=== PATIENT | male | born 1995 | race Caucasian/White ===

== ENCOUNTER 2017-04-01 11:43 | Emergency (ER) | payer BC ==
[~2017-04-01] VITALS: Ht 195.6 cm; Wt 65.4 kg
[~2017-04-01 11:43] MED LIST: VTMD PO; ZLF/50 PO
[2017-04-01 11:47] VITALS: TEMP 36.7; Ht 195.6 cm; Wt 65.4 kg
[2017-04-01] MEDS ORDERED: ONDANSETRON INJ 2 MG/ML 2 ML VIAL IV STA (12:46)
[2017-04-01] MEDS ORDERED: SODIUM CHLORIDE 0.9% 1000ML 300 ML IV STA (12:46)
[2017-04-01] MEDS ORDERED: ONDANSETRON INJ 2 MG/ML 2 ML VIAL ONE (12:52)
[2017-04-01 13:01] LABS: HEMATOCRIT 46.8 % (42-52); MEAN CELL VOLUME 96.5 fL (80-100); MEAN CORPUSCULAR HEMOGLOBIN 34.4 pg (25-34); MEAN CORPUSCULAR HGB CONC 35.7 g/dl (32-36); MEAN PLATELET VOLUME 10.7 fL (7.4-10.4); PLATELET COUNT 234 K/uL (130-400); RED BLOOD COUNT 4.85 M/uL (4.7-6.1); WHITE BLOOD COUNT 9.15 K/uL (4.8-10.8)
[2017-04-01 13:05] LABS: MANUAL MICROSCOPIC REQUIRED? YES; URINE APPEARANCE CLOUDY (CLEAR); URINE BILIRUBIN NEG (NEG); URINE COLOR AMBER; URINE NITRITE POS (NEG); URINE PH 6.5 (4.5-7.5); URINE SPECIFIC GRAVITY 1.025 (1.000-1.030); UROBILINOGEN NEG (NEG)
[2017-04-01 13:06] LABS: REVIEW REQ? NO
[2017-04-01 13:09] LABS: URINE BACTERIA 2+ (NEG); URINE MUCUS PRESENT (NONE PRSENT); URINE RBC >30 /hpf (0-4); URINE WBC >30 /hpf (0-5); ZZUR CULT IF INDIC CLEAN CATCH YES
--- NOTE | 2017-04-01 13:15 | EMERGENCY ROOM VISIT NOTE ---
History First contact with patient: 13:01 Chief Complaint: URINARY SYMPTOMS Stated Complaint: KIDNEY PAIN, DARK URINE, TESTICULAR PAIN, N,V Nursing Triage Summary: low urine output, cola colored, nausea/vomiting, and testicular pain History of Present Illness The patient is a 21 year old male who presents to the Emergency Room with complaints of right flank pain, nausea and vomiting that started yesterday morning. The patient is also having a difficult time urinating. He feels that he has to urinate, but it only dribbles out. The pain is better today than it was yesterday. He has tried acetaminophen with good pain relief. He denies any fever or chills. No changes in bowel movements. He denies any history of kidney stones. Review of Systems 10 system review performed and negative unless noted in HPI or below Past Medical/Surgical History Otherwise healthy Family History Kidney stones Social History Smoking Status: Current Every Day Smoker Alcohol Use: none Drug Use: none Current/Historical Medications Scheduled Ondasetron Odt (Zofran Odt), 4 MG SL Q6H Sertraline HCl (Sertraline HCl), 50 MG PO QPM Sulfa/Trimethoprim (Bactrim Ds 800MG/160MG), 1 TAB PO BID Tamsulosin Hcl (Flomax), 0.4 MG PO DAILY Scheduled PRN Oxycodone/Acetaminophen 5MG/325MG (Percocet 5MG/325MG), 1 TAB PO Q4H PRN for Pain Physical Exam Vital Signs Date Time Temp Pulse Resp B/P (MAP) Pulse Ox O2 Delivery O2 Flow Rate FiO2 04/01/17 15:05 55 16 124/64 99 Room Air 04/01/17 12:57 51 18 120/70 99 Room Air 04/01/17 12:49 51 04/01/17 11:47 36.7 69 18 98/60 98 Room Air Physical Exam VITALS: Vitals are noted on the nurse's note and reviewed by myself. Vital signs stable. GENERAL: 21-year-old male, in no acute distress, nondiaphoretic, well-developed well-nourished. SKIN: The skin was without rashes, erythema, edema, or bruising. HEAD: Normocephalic atraumatic. MOUTH: Mucous membranes dry. NECK: Supple without nuchal rigidity. No lymphadenopathy. Cervical spine is nontender. No JVD. HEART: Regular rate and rhythm without murmurs gallops or rubs. LUNGS: Clear to auscultation bilaterally without wheezes, rales or rhonchi. No accessory muscle use. ABDOMEN: Positive bowel sounds x 4.Soft, nontender, without organomegaly. No guarding or rebound tenderness. Slight right-sided CVA tenderness noted. MUSCULOSKELETAL: No muscle atrophy, erythema, or edema noted. Strength 5/5 throughout. NEURO: Patient was alert and oriented to person place and time. Normal sensation to touch. No focal neurological deficits. Medical Decision & Procedures ER Provider Diagnostic Interpretation: CT abdomen and pelvis Patient Name: AMY GEORGE Unit Number: [id number] Dictated: 04/01/171346 Transcribed: 04/01/171346 JRB Printed Date/Time: [~ rep prt dt]/[~ rep prt tm] [~ rep ct labl] - [~ rep ct ivnm] [facility] Radiology Department [place] [id number] Dictated: 04/01/171346 Transcribed: 04/01/171346 JRB Printed Date/Time: [~ rep prt dt]/[~ rep prt tm] [~ rep ct labl] - [~ rep ct ivnm] IMPRESSION: 1. Mild right-sided hydroureteronephrosis secondary to an obstructing 5 x 3 x 3 mm calculus of the right ureterovesicular junction. 2. Remote appearing left-sided pars defect at L5 with ill-defined lucency noted involving the right pars interarticularis at this level suspicious for possible acute pars defect. Correlate with clinical exam and patient history. 3. Normal appendix. The above report was generated using voice recognition software. It may contain grammatical, syntax or spelling errors. Electronically signed by: Holland Cardozo M.D. 04/01/2017 1:55 PM Dictated Date/Time: 04/01/2017 1:47 PM The status of this report is Signed. Draft = Not yet reviewed or approved by Radiologist. Signed = Reviewed and approved by Radiologist. <AttendingPhy></AttendingPhy> <FamilyPhy>Anuel Aguilar D.OGeneva</FamilyPhy> < PrimaryPhy>Anuel Aguilar D.O.</PrimaryPhy> <UnitNumber>[id number]</UnitNumber > <VisitNumber>[id number]</VisitNumber> <PatientName>AMY GEORGE</ PatientName> <DateOfBirth>1995</DateOfBirth> <Location>[facility]</Location> < ServiceDate>04/01/17</ServiceDate> <MNE>ESINDI</MNE> <OrderingPhy>Sylvia Diaz PA-C</OrderingPhy> <OrderingPhyMNE>f rep ord dr champion</OrderingPhyMNE> < DictatingPhyMNE>f rep dict dr champion</DictatingPhyMNE> <CCListMNE>f rep ct mne</ CCListMNE> <AdmittingPhyMNE>f pt admit dr champion</AdmittingPhyMNE> <AttendingPhyMNE >f pt attend dr champion</AttendingPhyMNE> <ConsultingPhyMNE>f pt consult dr champion</ConsultingPhyMNE> <FamilyPhyMNE>f pt fam dr champion</FamilyPhyMNE> <OtherPhyMNE>f pt other dr champion</OtherPhyMNE> < PrimaryPhyMNE>f pt prim care dr champion</PrimaryPhyMNE> <ReferringPhyMNE>f pt referring dr champion</ReferringPhyMNE> Laboratory Results 04/01/17 12:20 04/01/17 12:20 Test 04/01/17 12:20 04/01/17 12:44 Red Blood Count 4.85 M/uL (4.7-6.1) Mean Corpuscular Volume 96.5 fL (80-100) Mean Corpuscular Hemoglobin 34.4 pg (25-34) Mean Corpuscular Hemoglobin Concent 35.7 g/dl (32-36) RDW Standard Deviation 41.9 fL (36.4-46.3) RDW Coefficient of Variation 11.8 % (11.5-14.5) Mean Platelet Volume 10.7 fL (7.4-10.4) Anion Gap 2.0 mmol/L (3-11) Est Creatinine Clear Calc Drug Dose 99.1 ml/min Estimated GFR () 111.4 Estimated GFR (Non- 96.1 BUN/Creatinine Ratio 12.8 (10-20) Calcium Level 9.5 mg/dl (8.5-10.1) Total Bilirubin 0.8 mg/dl (0.2-1) Direct Bilirubin 0.2 mg/dl (0-0.2) Aspartate Amino Transf (AST/SGOT) 18 U/L (15-37) Alanine Aminotransferase (ALT/SGPT) 24 U/L (12-78) Alkaline Phosphatase 121 U/L (45-117) Total Creatine Kinase 134 U/L (39-308) Creatine Kinase MB 0.9 ng/ml (0.5-3.6) Creatine Kinase MB Ratio 0.7 (0-3.0) Total Protein 8.0 gm/dl (6.4-8.2) Albumin 4.4 gm/dl (3.4-5.0) Lipase 101 U/L (73-393) Urine Color PATRICE Urine Appearance CLOUDY (CLEAR) Urine pH 6.5 (4.5-7.5) Urine Specific [place] 1.025 (1.000-1.030) Urine Protein 3+ (NEG) Urine Glucose (UA) NEG (NEG) Urine Ketones 1+ (NEG) Urine Occult Blood 3+ (NEG) Urine Nitrite POS (NEG) Urine Bilirubin NEG (NEG) Urine Urobilinogen NEG (NEG) Urine Leukocyte Esterase NEG (NEG) Urine RBC >30 /hpf (0-4) Urine WBC >30 /hpf (0-5) Urine Epithelial Cells 0-5 /lpf (0-5) Urine Bacteria 2+ (NEG) Urine Mucus PRESENT (NONE PRSENT) Medications Administered Medications (Trade) Dose Ordered Sig/Ilan Route Start Time Stop Time Status Last Admin Dose Admin Sodium Chloride 300 ml @ 999 mls/hr Q19M STAT IV 04/01/17 12:46 04/01/17 13:04 DC 04/01/17 12:54 999 MLS/HR Ondansetron HCl (Zofran Inj) 4 mg NOW STAT IV 04/01/17 12:46 04/01/17 12:52 DC 04/01/17 12:54 4 MG Ceftriaxone Sodium (Rocephin Inj) 1 gm NOW STAT IV 04/01/17 14:29 04/01/17 14:31 DC 04/01/17 15:04 1 GM Tamsulosin HCl (Flomax Cap) 0.4 mg NOW ONCE PO 04/01/17 15:30 04/01/17 15:31 DC 04/01/17 15:33 0.4 MG ED Course Patient was seen and examined Vital signs including blood pressure were reviewed medications list was verified with patient Labs were obtained, and a saline lock was established He declined pain medication. Imaging was performed and reviewed. The patient was reassessed and resting comfortably. We discussed the results of his workup. He voiced understanding. The patient was given 1 dose of Flomax and a gram of Rocephin. I reviewed discharge instructions the patient. They voiced understanding and had no further questions. Medical Decision DIFFERENTIAL DIAGNOSIS: Gastroenteritis, Hepatitis, cholecystitis, cholangitis, biliary colic, pancreatitis, appendicitis, inguinal hernia, nephrolithiasis, inflammatory bowel disease, mesenteric adenitis, peptic ulcer disease, GERD, gastritis, pancreatitis,, bowel obstruction, splenic infarct, diverticulitis, mesenteric ischemia, metabolic, peritonitis, among others. This patient is a 21-year-old male that presents to emergency department with complaints of right flank pain, nausea, vomiting and difficulty urinating. On exam he had some right-sided CVA tenderness. He also appeared dehydrated. His lab work reveals blood in his urine and addition to white blood cells consistent with a UTI. His renal function is intact. There is no leukocytosis. A CT scan confirms a 5 mm ureteral stone at the UVJ with mild hydronephrosis. The patient is nontoxic in appearance. He is afebrile. He was treated with a dose of IV Rocephin in the emergency department. I believe he is stable to be discharged home with Flomax, narcotics, antiemetics and antibiotics. He and his mother are comfortable with this plan. They were instructed to return immediately to the emergency department with any new, worsening or concerning symptoms, especially fever or worsening pain. They were in agreement with this plan, and he was discharged in good condition This chart was completed in part utilizing [employer] Speech Voice Recognition software. Attempts were made to minimize the grammatical errors, random word insertions, pronoun errors and incomplete sentences. Any formal questions or concerns about the content, text or information contained within the body of this dictation should be directly addressed to the provider for clarification. Impression Primary Impression: Urinary tract infection Additional Impression: Kidney stone Departure Information Dispostion Home / Self-Care Condition GOOD Prescriptions Sulfa/Trimethoprim (Bactrim Ds 800MG/160MG) Tab 1 TAB PO BID, #28 TAB Prov: Sylvia Diaz PA-C 04/01/17 Ondasetron Odt (ZOFRAN ODT) 4 Mg Tab 4 MG SL Q6H for Nausea, #20 TAB Prov: Sylvia Diaz PA-C 04/01/17 Tamsulosin Hcl (FLOMAX) 0.4 Mg Cap 0.4 MG PO DAILY, #7 CAP Prov: Sylvia Diaz PA-C 04/01/17 Oxycodone/Acetaminophen 5MG/325MG (PERCOCET 5MG/325MG) Tab 1 TAB PO Q4H Y for Pain, #15 TAB For Initial Treatment Prov: Sylvia Diaz PA-C 04/01/17 Referrals Anuel Aguilar D.O. (PCP) Aníbal Palmer M.D. Patient Instructions [facility] Additional Instructions You were evaluated in the emergency department for flank pain and difficulty urinating. It appears that you have a kidney stone in addition to a urinary tract infection. Ibuprofen 600 mg every 6 hours Percocet 1-2 tabs every 4 hours for severe pain. Do not drink alcohol or drive while taking this medication. This may be taken with ibuprofen, but avoid Tylenol. Please take a stool softener such as Colace will taking this medication as it may cause constipation Please take Zofran 1 tab under the tongue every 6 hours as needed for nausea Flomax 1 tab daily for 7 days Please take the entire course of antibiotics. Please follow-up with your primary care physician. Please also follow up with a urologist. A number has been provided. Please do not hesitate to return to the emergency department with any new, worsening or concerning symptoms; especially, fever, worsening pain or intractable nausea and vomiting Problem Qualifiers
[2017-04-01 13:24] LABS: BUN/CREATININE RATIO 12.8 (10-20); CALCIUM 9.5 mg/dl (8.5-10.1); CREATININE 1.1 mg/dl (0.60-1.40); POTASSIUM 3.7 mmol/L (3.5-5.1)
[2017-04-01 13:44] LABS: CKMB/CK RATIO 0.7 (0-3.0)
--- NOTE | 2017-04-01 13:56 | DIAGNOSTIC IMAGING REPORT ---
ABD/PELVIS WITHOUT FOR STONE HISTORY: 21 years-old Male R flank pain n/v acute right flank and right testicular pain with associated nausea, vomiting and hematuria. COMPARISON: None available TECHNIQUE: Multiple axial CT images of the abdomen and pelvis were obtained without IV contrast. A dose lowering technique was used consistent with the principals of ALEXYS. FINDINGS: The lung bases are generally clear. The imaged inferior cardiac chambers are unremarkable. The liver, spleen, gallbladder, pancreas and adrenal glands are within normal limits. There is mild right-sided hydroureteronephrosis secondary to an obstructing 5 x 3 x 3 mm calculus of the right ureterovesicular junction seen on image 341 series 3. The urinary bladder is partially collapsed. Left kidney and left ureter and prostate are unremarkable. Aorta is normal in course and caliber. No bulky adenopathy. There is no bowel obstruction or focal bowel wall thickening. Appendix appears normal. Soft tissues are unremarkable. Remote appearing pars defect noted on the left at L5. There is an ill-defined lucency noted involving the right pars at L5 suggesting possible acute pars defect. No spondylolisthesis. IMPRESSION: 1. Mild right-sided hydroureteronephrosis secondary to an obstructing 5 x 3 x 3 mm calculus of the right ureterovesicular junction. 2. Remote appearing left-sided pars defect at L5 with ill-defined lucency noted involving the right pars interarticularis at this level suspicious for possible acute pars defect. Correlate with clinical exam and patient history. 3. Normal appendix. The above report was generated using voice recognition software. It may contain grammatical, syntax or spelling errors. Electronically signed by: Holland Cardozo M.D. 04/01/2017 1:55 PM Dictated Date/Time: 04/01/2017 1:47 PM
[2017-04-01] MEDS ORDERED: CEFTRIAXONE SOD INJ 1 GM ADDVIAL IV STA (14:29)
[2017-04-01 15:05] VITALS: BP 124/64; PULSE 55; O2SAT 99
[2017-04-01] MEDS ORDERED: OXYC-57 PO (15:17)
[2017-04-01] MEDS ORDERED: ONDA4TAB10 SL (15:17)
[2017-04-01] MEDS ORDERED: SULF800T23 PO (15:17)
[2017-04-01] MEDS ORDERED: TAMS0.4C38 PO (15:17)
[2017-04-01] MEDS ORDERED: TAMSULOSIN HCL 0.4 MG CAP PO ONE (15:30)
== END 2017-04-01 15:43 | disposition home or self-care (01) ==
LOC: C.EDB 11:45
DX: N39.0 Urinary tract infection, site not specified (principal); N20.0 Calculus of kidney; F17.200 Nicotine dependence, unspecified, uncomplicated; Z84.1 Family history of disorders of kidney and ureter

== ENCOUNTER → 2017-04-09 | Outpatient (CLI) | payer BC ==
[~2017-04-09] MED LIST changes: +ONDA4TAB10 SL; +OXYC-57 PO; +SULF800T23 PO; +TAMS0.4C38 PO; -VTMD PO
--- NOTE | 2017-04-09 12:26 | DIAGNOSTIC IMAGING REPORT ---
MRI LUMBAR SPINE W/O CONTRAST CLINICAL HISTORY: ABNORMAL ABD CT, pars defect TECHNIQUE: Sagittal and axial T1, T2 and STIR images were obtained. COMPARISON STUDY: CT scan dated 04/01/2017 OBSERVATIONS: There is an old left-sided pars defect. There is mild marrow edema involving the right pars, a finding suggesting a acute/subacute pars defect. L1-2: No disc protrusions or extrusions. No evidence of spinal canal or neural foraminal compromise. L2-3: No disc protrusions or extrusions. No evidence of spinal canal or neural foraminal compromise. L3-4: No disc protrusions or extrusions. No evidence of spinal canal or neural foraminal compromise. L4-5: No disc protrusions or extrusions. No evidence of spinal canal or neural foraminal compromise. L5-S1: No disc protrusions or extrusions. No evidence of spinal canal or neural foraminal compromise. The conus medullaris and cauda equina appear normal. IMPRESSION: 1. No disc herniations identified. No evidence of spinal or foraminal stenosis 2. 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 Subtle edema at the level of the right L5 pars, a finding consistent with an acute/subacute pars defect Electronically signed by: Mike Westfall M.D. 04/09/2017 12:25 PM Dictated Date/Time: 04/09/2017 12:19 PM
== END | disposition home or self-care (01) ==
LOC: C.MRI 11:09
PROVIDERS: ATTEND Internal Medicine
DX: M43.06 Spondylolysis, lumbar region (principal); R93.5 Abnormal findings on diagnostic imaging of other abdominal regions, including retroperitoneum

== ENCOUNTER → 2017-04-25 | Outpatient (CLI) | payer BC ==
[~2017-04-25] MED LIST changes: -TAMS0.4C38 PO
--- NOTE | 2017-04-25 12:00 | DIAGNOSTIC IMAGING REPORT ---
(RENAL)RETROPERITON COMP HISTORY: Nephrocalcinosis N20.1 Ureteric [id number] COMPARISON: CT abdomen and pelvis 04/01/2017 FINDINGS: Right kidney: Maximum dimension 12.4 cm. 7 mm cortical cyst. No evidence for hydronephrosis. Normal corticomedullary differentiation and cortical thickness. Left kidney: Maximum dimension 12.4 cm. No evidence for hydronephrosis. Normal corticomedullary differentiation and cortical thickness. Bladder: No bladder wall thickening. The bilateral ureteral jets were identified. IMPRESSION: 1. Small right renal cyst. 2. Otherwise normal renal ultrasound. The above report was generated using voice recognition software. It may contain grammatical, syntax or spelling errors. Electronically signed by: Allan Mario M.D. 04/25/2017 11:58 AM Dictated Date/Time: 04/25/2017 11:57 AM
--- NOTE | 2017-04-25 12:23 | DIAGNOSTIC IMAGING REPORT ---
KUB CLINICAL HISTORY: Ureteral stone. FINDINGS: 2 AP supine abdominal radiographs are correlated with abdominal CT dated 04/01/2017. There is a nonobstructed abdominal bowel gas pattern. There is no radiographic evidence of nephrolithiasis. No calcifications project along the course of the ureters. The bony structures appear intact. IMPRESSION: There is no radiographic evidence of nephrolithiasis on today's examination. Electronically signed by: Shaji Sarabia M.D. 04/25/2017 12:22 PM Dictated Date/Time: 04/25/2017 12:20 PM
== END | disposition home or self-care (01) ==
LOC: C.ULTRBC 11:13
PROVIDERS: ATTEND Urology
DX: N20.1 Calculus of ureter (principal); N28.1 Cyst of kidney, acquired